=== PATIENT | male | born 1930 | race Caucasian/White ===

== ENCOUNTER 2017-01-26 15:47 | Inpatient (IN) | payer MEDICARE, OTHER ==
[2017-01-26 16:32] LABS: #Basophils 0.1 thou/uL (0.0-0.2); #Eosinphils 0.3 thou/uL (0.0-0.7); #Lymphocytes 1.9 thou/uL (1.20-3.40); #Monocytes 1.1 thou/uL (0.11-0.59); #Neutrophils 9.8 thou/uL (1.40-6.50); %Basophils 0.5 % (0.0-1.0); %Lymphocytes 14.6 % (21.0-51.0); %Monocytes 8.1 % (0.0-10.0); Hematocrit 47.5 % (42.0-52.0); Mean Platelet Volume 7.2 fL (7.4-10.4); Red Blood Cell (RBC) Count 4.77 mill/uL (4.70-6.10); White Blood Cell (WBC) Count 13.1 thou/uL (4.8-10.8)
[2017-01-26 16:41] LABS: Lactic Acid - Sepsis 1.3 mmol/L (0.5-2.2)
[2017-01-26 16:48] LABS: ALT (SGPT) 8 U/L (8-55); AST (SGOT) 20 U/L (5-34); Alkaline Phosphatase 80 U/L (40-150); Anion Gap 11 mmol/L (10-20); BUN (Urea Nitrogen) 14 mg/dL (8.4-25.7); Bilirubin, Total 0.6 mg/dL (0.2-1.2); CK (CPK) 116 U/L (30-200); Calc. Creatinine Clearance 0 mL/min (70-130); Calcium 9.4 mg/dL (7.8-10.44); Carbon Dioxide 26 mmol/L (23-31); Chloride 108 mmol/L (98-107); Estimated GFR-MDRD 72; Protein, Total 6.9 g/dL (5.8-8.1)
[2017-01-26 16:49] LABS: Troponin I Less than 0.010 ng/mL (< 0.028)
[2017-01-26 17:03] LABS: Bilirubin Negative (Negative); Blood, Urine Negative (Negative); Glucose, Urine (Dipstick) 250 mg/dL (Negative); Ketone, Urine Negative (Negative); Nitrite Negative (Negative); Protein, Urine (Dipstick) Negative (Neg-Trace)
--- NOTE | 2017-01-26 17:36 | CT ---
NONCONTRAST CT HEAD: 01/26/2017 HISTORY: Syncopal episode this morning, and patient fell in bathroom. Similar episodes in the past. Injury a t fall. COMPARISON: None available. FINDINGS: There is no evidence of a hemorrhage, acute infarction, mass effect, or midline shift. There is mild cerebral volume loss not unexpected for the patient's age. The ventricular system is normal in size , shape, and position. The visualized paranasal sinuses and right mastoid air cells are clear. Left mastoid air cells are not well-pneumatized but were visualized, and there appear to be mastoid effus ions. No calvarial fracture is seen. IMPRESSION: No acute intracranial abnormality is demonstrated. POS: [facility]
--- NOTE | 2017-01-26 17:49 | RAD ---
CHEST TWO VIEWS HISTORY: Fall. COMPARISON: None. FINDINGS: Lungs are clear and hyperinflated. Chronic pleural and parenchymal changes at lung bases. No pneumot horax. Cardiac silhouette and mediastinal contours are within normal limits. Thoracic spine is unremarkable. IMPRESSION: Mild lung hyperinflation. No acute intrathoracic abnormality. POS: [facility]
--- NOTE | 2017-01-26 17:52 | RAD ---
RIGHT SHOULDER THREE VIEWS: HISTORY: Trauma. COMPARISON: None. FINDINGS: Moderate degenerative changes at acromioclavicular joint. Mild calcific tendinosis of rotator cuff. No acute fracture or malalignment is appreciated. The coracoid process is intact. The right ribs are unremarkable. IMPRESSION: Degenerative changes. No acute fracture or malalignment. POS: [facility]
--- NOTE | 2017-01-26 17:57 | CT ---
CT CERVICAL SPINE WITHOUT CONTRAST: HISTORY: Trauma. COMPARISON: None available. FINDINGS: The occipital condyles are intact. Odontoid process is intact. There is severe left-sided C2-C5 fac et arthropathy. Moderate uncinate process hypertrophy from C3-C7. Likely old superior endplate defo rmity at T2. Paraspinal soft tissues are unremarkable. Mild calcific plaque at the carotid bulbs bi laterally. No adenopathy. The lung apices are clear. IMPRESSION: 1. No acute fracture or malalignment of the cervical spine. 2. Likely chronic superior endplate deformity at T2 with less than 5% height loss. POS: [facility]
--- NOTE | 2017-01-26 18:08 | RAD ---
RIGHT ANKLE THREE VIEWS: HISTORY: Trauma. COMPARISON: None. FINDINGS: No acute fracture or malalignment. Soft tissue unremarkable. There are mild degenerative changes of the medial ankle mortise. IMPRESSION: 1. No acute fracture or malalignment. 2. There is evidence of prior syndesmotic injury. POS: [facility]
--- NOTE | 2017-01-26 20:58 | PDOC.EVN ---
Event Note - Event Note Event Note: [id number] h&p dICTATED 1. AFIB 2. HPL 3. Syncope plan: see orders
[2017-01-26] MEDS ORDERED: Sodium Chloride 0.9% 1,000 ML IV SCH (21:05)
[2017-01-26] MEDS ORDERED: Ondansetron ODT 4 MG TAB SL PRN (21:05)
[2017-01-26] MEDS ORDERED: Ondansetron HCl/PF 4 MG/2 ML Vial IVP PRN (21:05)
[2017-01-26] MEDS ORDERED: HYDROcodone/Acetaminophen 5/325 mg Tablet PO PRN (21:29)
[2017-01-26] MEDS: Sodium Chloride 0.9% 1,000 ML IV SCH (21:51)
[2017-01-26] MEDS: Acetaminophen 325 MG TAB PO PRN (22:04)
[2017-01-26 22:52] VITALS: BMI 19.8
[2017-01-26 23:57] LABS: Troponin I 0.013 ng/mL (< 0.028)
[2017-01-27 05:21] LABS: #Eosinphils 0.6 thou/uL (0.0-0.7); #Lymphocytes 1.8 thou/uL (1.20-3.40); #Neutrophils 5.4 thou/uL (1.40-6.50); %Basophils 0.4 % (0.0-1.0); %Eosinophils 7.3 % (0.0-10.0); %Lymphocytes 20.3 % (21.0-51.0); %Monocytes 10.9 % (0.0-10.0); Hematocrit 42.1 % (42.0-52.0); Mean Platelet Volume 7.2 fL (7.4-10.4); Red Blood Cell (RBC) Count 4.25 mill/uL (4.70-6.10); White Blood Cell (WBC) Count 8.8 thou/uL (4.8-10.8)
--- NOTE | 2017-01-27 05:47 | HP ---
DATE OF ADMISSION: 01/26/2017 CHIEF COMPLAINT: Syncope. HISTORY OF PRESENT ILLNESS: Patient is a 86-year-old male with past medical history of atrial fibril lation, hyperlipidemia and now complaining of syncope. The patient said he was at home and when arou nd 4:00, he woke up this morning and walked to the restroom. While walked to the restroom, he felt l ightheadedness. As soon as he sat on the toilet commode, he passed out due to fall, does not remembe r if he hit his head, but he did lose consciousness for approximately 5 to 6 seconds. He denies any chest pain, denies any palpitations prior to passing out. Once he regained conscious, he knows where he was. The patient was brought to the ER for further evaluation. Denies any chest pain. Denies a ny palpitations. Denies any cough, denies sputum production, denies any nausea, denies vomiting, den ies any dizziness, denies lightheadedness at this time. PAST MEDICAL HISTORY: As per HPI. PAST SURGICAL HISTORY: Cholecystectomy and right breast surgery done, left leg skin graft placed, tr igger finger surgery. SOCIAL HISTORY: Denies smoking, denies alcohol, denies any drugs. FAMILY HISTORY: Positive for heart problems. MEDICATIONS: Reviewed. ALLERGIES: No known drug allergies. REVIEW OF SYSTEMS: Constitutional: Denies any fever, denies any chills. Eyes: Denies any vision problems. Ears: Den ies any hearing loss. Neck: Denies any neck pain. Cardiovascular: Denies any chest pain. Denies palpitations. Respiratory: Denies any cough, denies sputum production. Gastrointestinal: Denies a ny nausea, vomiting. Musculoskeletal: Denies any joint deformities. Cranial nerve system: Positiv e for syncope. Psychiatric: Denies anxiety. Integumentary: Positive for right ankle ecchymosis. All other review of systems are reviewed and are negative. PHYSICAL EXAMINATION: CONSTITUTIONAL/VITAL SIGNS: At the time of H&P performed, blood pressure is 125/83, pulse ox 93%, he art rate 72, respiratory rate 16. GENERAL: The patient appears comfortable. HEENT: Pupils equal, round, and reactive to light. Anterior nares patent. Nose normal. Ears mildred l. Teeth intact. Tongue is moist. NECK: Supple. No JVD. CARDIOVASCULAR SYSTEM: S1, S2 present. Regular rate and rhythm. No murmurs, no rubs, no gallops. RESPIRATORY: No wheezing, no rhonchi. GASTROINTESTINAL: Abdomen is soft, nontender, no guarding, no organomegaly, no masses felt. PSYCHIATRIC: Mood appropriate at this time. INTEGUMENTARY: Positive for right ankle ecchymosis seen and left small skin tear seen on the right u pper back, left hip small ecchymosis seen. LABORATORY DATA: At the time of H&P performed, white count 13.1, hemoglobin 16.2, platelet count is 278. BMP showed sodium 141, potassium 4.3, chloride 108, BUN 14, creatinine 0.9, troponin less than 0.010, BNP 156.8. UA, positive for glucose. CT brain, no acute bleed seen. CT cervical spine, no f racture seen. Ankle x-ray, no obvious fractures seen. Chest x-ray, no obvious infiltrate seen. EKG , no acute ST changes. ASSESSMENT AND PLAN: The patient is an 86-year-old male. 1. Syncope, rule out cardiac etiology. Plan to check cardiac enzymes. Plan to consult cardiology w ith the patient. Plan to check 2D echo and carotid ultrasound also, we will follow the patient. 2. History of atrial fibrillation. Continue sotalol. 3. History of hyperlipidemia. Continue statins. Case was discussed in detail with the patient and patient's granddaughter also.
[2017-01-27 05:52] LABS: Anion Gap 8 mmol/L (10-20); BUN (Urea Nitrogen) 12 mg/dL (8.4-25.7); Calc. Creatinine Clearance 60 mL/min (70-130); Calcium 8.4 mg/dL (7.8-10.44); Carbon Dioxide 25 mmol/L (23-31); Chloride 112 mmol/L (98-107); Estimated GFR-MDRD 89
[2017-01-27] MEDS: Acetaminophen 325 MG TAB PO PRN (06:19)
[2017-01-27] MEDS ORDERED: Sotalol HCl 80 MG TAB PO SCH (09:00)
[2017-01-27] MEDS ORDERED: Aspirin 325 MG TAB PO SCH (09:00)
--- NOTE | 2017-01-27 09:06 | ULT ---
ULTRASOUND WITH DOPPLER DUPLEX CAROTID: History: 86-year-old male with syncope. Technique: Grayscale, color flow, and spectral analysis of major arteries of the neck. FINDINGS: There is intimal thickening throughout the bilateral common carotid arteries and internal carotid art eries. There is mild to moderate calcified plaque in the bilateral proximal internal carotid arteries , including their origins at the carotid bulbs. The highest peak systolic velocities in the internal carotid arteries are 55 cm/s on the right and 60 cm/s on the left. The ICA/CCA ratios are 0.8 on the right and 1.0 on the left. The vertebral artery flow is antegrade bilaterally. IMPRESSION: 1. Mild to moderate atherosclerotic plaque at the bilateral proximal internal carotid arteries. 2. No hemodynamically significant stenosis. POS: [facility]
[2017-01-27] MEDS: Heparin 5,000 UNITS/ML VIAL SC SCH ×2 (09:27→14:06)
[2017-01-27] MEDS: Sodium Chloride 0.9% 1,000 ML IV SCH (09:30)
--- NOTE | 2017-01-27 13:20 | PDOC.PN ---
- Subjective Encounter Start Date: 01/27/17 Encounter Start Time: 13:19 Subjective: feels better. no dizziness here so far.no chest pain/SOB/ palpitations - Objective MAR Reviewed: Yes Vital Signs & Weight: Vital Signs (12 hours) Temp Pulse Resp BP BP BP BP 01/27/17 12:00 97.6 F 72 15 160/80 H 145/70 H 164/77 H 01/27/17 09:28 74 154/63 H 01/27/17 08:00 97.2 F L 74 17 154/63 H 01/27/17 04:00 97.5 F L 65 18 151/70 H Pulse Ox 01/27/17 12:00 98 01/27/17 09:28 01/27/17 08:00 98 01/27/17 04:00 98 Weight Weight 142 lb 6.4 oz I&O: 01/26/17 01/27/17 01/28/17 06:59 06:59 06:59 Intake Total 1215 Output Total 550 Balance 665 Result Diagrams: 01/27/17 04:09 01/27/17 04:09 Additional Labs: Laboratory Tests 01/26/17 01/26/17 01/26/17 15:55 15:55 15:55 WBC 13.1 H Lactic Acid Troponin I Less than 0.010 B-Natriuretic Peptide 156.8 H 01/26/17 01/26/17 01/26/17 15:55 20:32 23:22 WBC Lactic Acid 1.3 Troponin I 0.020 0.013 B-Natriuretic Peptide 01/27/17 04:09 WBC 8.8 Lactic Acid Troponin I B-Natriuretic Peptide Radiology Reviewed by me: Yes (Carotid doppler-no stenosis) Phys Exam - Physical Examination Constitutional: NAD HEENT: PERRLA, moist MMs, sclera anicteric, oral pharynx no lesions Neck: no nodes, no JVD, supple, full ROM Respiratory: no wheezing, no rales, no rhonchi, clear to auscultation bilateral Cardiovascular: RRR, no significant murmur, no rub, gallop Gastrointestinal: soft, non-tender, no distention, positive bowel sounds Musculoskeletal: no edema, pulses present Neurological: non-focal, normal sensation, moves all 4 limbs Psychiatric: normal affect, A&O x 3 Skin: no rash Dx/Plan (1) Syncope and collapse Code(s): R55 - SYNCOPE AND COLLAPSE Status: Acute (2) Chronic atrial fibrillation Code(s): I48.2 - CHRONIC ATRIAL FIBRILLATION Status: Acute (3) HLD (hyperlipidemia) Code(s): E78.5 - HYPERLIPIDEMIA, UNSPECIFIED Status: Acute - Plan plan discussed w/ family, PT/OT, out of bed/ambulate, DVT proph w/SCDs Orthostats negative.cont IVF.reduce rate. -: LINQ monitor in place. awaiting cardio recs if any arrythmia reported. -: ECHO ordered.Restart home meds including Sotalol. -: hemodynamically stable. -: Further management per cardiology recs.troponin negative * . Review of Systems - Review of Systems Constitutional: negative: Fever, Chills, Sweats, Weakness, Malaise, Other Respiratory: negative: Cough, Dry, Shortness of Breath, Hemoptysis, SOB with Excertion, Pleuritic Pain, Sputum, Wheezing Cardiovascular: negative: Chest Pain, Palpitations, Orthopnea, Paroxysmal Noc. Dyspnea, Edema, Light Headedness, Other Gastrointestinal: negative: Nausea, Vomiting, Abdominal Pain, Diarrhea, Constipation, Melena, Hematochezia, Other Genitourinary: negative: Dysuria, Frequency, Incontinence, Hematuria, Retention , Other Musculoskeletal: negative: Neck Pain, Shoulder Pain, Arm Pain, Back Pain, Hand Pain, Leg Pain, Foot Pain, Other Neurological: negative: Weakness, Numbness, Incoordination, Change in Speech, Confusion, Seizures, Other - Medications/Allergies Allergies/Adverse Reactions: Allergies Allergy/AdvReac Type Severity Reaction Status Date / Time No Known Allergies Allergy Verified 01/27/17 02:09 Medications: Current Medications Acetaminophen (Tylenol) 650 mg PO Q4H PRN PRN Reason: Headache/Fever or Pain Last Admin: 01/27/17 06:19 Dose: 650 mg Hydrocodone Bitart/Acetaminophen (Baxter 5/325) 1 tab PO Q4H PRN PRN Reason: Moderate Pain (4-6) Aspirin (Aspirin) 325 mg PO DAILY [facility] Last Admin: 01/27/17 09:28 Dose: 325 mg Heparin Sodium (Porcine) (Heparin) 5,000 units SC TID [facility] Last Admin: 01/27/17 09:27 Dose: 5,000 units Sodium Chloride (Normal Saline 0.9%) 1,000 mls @ 75 mls/hr IV .[id number] [facility] Last Admin: 01/27/17 09:30 Dose: 1,000 mls Ondansetron HCl (Zofran) 4 mg IVP Q6H PRN PRN Reason: Nausea/Vomiting Ondansetron HCl (Zofran Odt) 4 mg SL Q6H PRN PRN Reason: Nausea/Vomiting Rosuvastatin Calcium (Crestor) 20 mg PO HS [facility] Sodium Chloride (Flush - Normal Saline) 10 ml IVF PRN PRN PRN Reason: Saline Flush Sotalol HCl (Betapace) 40 mg PO BID [facility] Last Admin: 01/27/17 09:28 Dose: 40 mg
--- NOTE | 2017-01-27 14:52 | CON ---
DATE OF CONSULTATION: 01/27/2017 REASON FOR CONSULTATION: Syncope. HISTORY OF PRESENT ILLNESS: Mr. Salazar is an 86-year-old gentleman with a history of atrial arrhythm ias with syncopal episode early yesterday morning. The patient states he was sleeping. He was doing fine. He awakened to go to the bathroom. He start ed feeling weak and lightheaded and then suddenly lost consciousness. He may grabbing a rail on the wall near the bathroom, but lost consciousness. He was brought to the hospital. The patient is feel ing fine now. He said similar episodes in the past. He feels weak and lightheaded if he gets outside and gets in t he heat. PAST MEDICAL HISTORY: History of atrial arrhythmias. He has left-sided atrial arrhythmias including atrial tachycardia as well as atrial fibrillation. There has been no documented atrial fibrillation to my knowledge any time recently, but he has had atrial tachycardia. He was previously seen by [facility] ctrophysiology and implantable loop recorder was placed by Dr. Weiss on 10/2014. MEDICATIONS: 1. Sotalol 40 mg twice daily. 2. Simvastatin 10 mg daily. 3. Aspirin 325 mg daily. ALLERGIES: None known. SOCIAL HISTORY: He has a very supportive family. No alcohol or tobacco abuse. REVIEW OF SYSTEMS: Vision: No changes. Hearing: No changes. Pulmonary: No cough or wheezing. G astrointestinal: No nausea, vomiting, diarrhea. Skin: No rashes. Neurologic: No unilateral weakn ess or numbness. Psychiatric: No unusual depression or anxiety. Hematologic: No unusual bruising. Genitourinary: No burning with urination. Musculoskeletal: No unusual joint pains. PHYSICAL EXAMINATION: GENERAL: A pleasant elderly gentleman in no distress. VITAL SIGNS: Blood pressure 147/83. The family tells me that in the emergency room initially he had a very big drop in blood pressure when he went from a supine to sitting position. HEENT: Eyes: Sclerae nonicteric. Mouth, mucous membranes moist. NECK: Supple, no lymphadenopathy. LUNGS: Clear, no wheezing, rales or rhonchi. CARDIAC: Normal S1, normal S2. There is no murmur, rub or gallop. ABDOMEN: Soft, nontender, no hepatosplenomegaly. EXTREMITIES: Warm, dry, no clubbing or cyanosis. There is no edema. IMAGING: EKG, sinus rhythm, first degree AV block, no acute changes. LABORATORY DATA: Troponin 0.022, BNP 227. ASSESSMENT: 1. Syncopal episode, probably orthostatic hypotension. 2. History of atrial arrhythmias. 3. Previous implantable loop recorder. PLAN: 1. Interrogate the device. 2. We did not have any arrhythmias. 3. Probably orthostatic hypotension. We will encourage him to sit on the side of the bed before get ting up and going to the bathroom, sit down quickly if he feels lightheaded. 4. Echo has been also ordered.
[2017-01-27 15:57] VITALS: BP 135/66; TEMP 97.4
--- NOTE | 2017-01-28 05:50 | DIS ---
DATE OF ADMISSION: 01/26/2017 DATE OF DISCHARGE: 01/27/2017 CONDITION AT THE TIME OF DISCHARGE: Stable and improved. DISCHARGE DIAGNOSES: 1. Syncope and falls. 2. Orthostatic hypotension. 3. History of chronic atrial fibrillation. 4. Dyslipidemia. PRIMARY CARE PHYSICIAN: Britton Nair M.D. PRIMARY INSTRUMENTATION SUPERVISOR: Micha Leavitt M.D. CONSULTATIONS IN-HOUSE: Include Cardiology, Dr. Leavitt. PROCEDURES DONE IN THE HOSPITAL: Include: 1. CT scan of the brain, which is negative for any acute intracranial abnormality. 2. CT scan of the cervical spine, which is negative for any acute fracture, chronic superior endplat e deformity T2 seen. 3. X-ray of the shoulder on the right side, it shows degenerative changes without any acute fracture s. 4. Ankle x-ray on the right ankle, which is negative for any fracture. 5. Chest x-ray which did not show any evidence of infiltrate or pulmonary edema. 6. Transthoracic echocardiogram, which shows normal left ventricular size and function with EF at 55 %-60%. Left atrium normal size, normal mitral and aortic valve. Mild tricuspid regurgitation and mi ld elevated pulmonary arterial pressure. 7. Carotid Doppler ultrasound, which is negative for and hemodynamically significant stenosis. Mode rate atherosclerotic plaque is seen in the bilateral proximal internal carotid artery without signifi cant stenosis. DISCHARGE MEDICATIONS: Remained the same as the home medication are as follows: Sotalol 40 mg p.o. b.i.d., aspirin 325 mg daily, and rosuvastatin 20 mg daily. PRESENTING HISTORY: Mr. Salazar is a pleasant 86-year-old male with past medical history of atrial arrhythmias as well as dyslipidemia, who presented to the hospital after having a syncopal ep isode and passing out and falling in his bathroom. Upon presentation, he was hemodynamically stable, awake, alert, and oriented x3. He underwent multitude of imaging studies as mentioned above and all of them were essentially unremarkable. He did not have any fracture, no cerebral hemorrhage. He wa s admitted to cardiac floor with telemetry monitoring for further evaluation given his history of atr ial arrhythmias. His EKG showed normal sinus rhythm upon presentation and he was hemodynamically sta ble. Please see admission history and physical for further details. HOSPITAL COURSE: The patient did not have any arrhythmias while he stayed in the hospital. His orth ostatics were checked and he had significant drop initially, which corrected after he was resuscitate d with IV fluids. His device was interrogated by Cardiology. Dr. Leavitt also saw the patient and he underwent an echocardiogram. His echocardiogram and his loop recorder recordings were essentially n ormal. His carotid Doppler study was also unremarkable. He was cleared by Cardiology for discharge with outpatient followup. Most likely cause of his syncop e is orthostatic hypotension. The patient was given instructions to sit up slowly from a lying position and stand up very slowly be fore start to move around. His medications were unchanged. He will follow up with Dr. Leavitt and hi s primary care physician as an outpatient. Discharge plan was discussed with the patient and his fam elizabeth, who verbalized understanding.
== END 2017-01-27 18:25 | disposition home or self-care (01) | DRG 312 ==
LOC: ERS 15:47 → 2NO 20:12
PROVIDERS: ADMIT Internal Medicine; ATTEND Internal Medicine
PROC: 4B02XSZ Measurement of Cardiac Pacemaker, External Approach (ICD-10-PCS; principal; 2017-01-27)
DX: I95.1 Orthostatic hypotension (principal); I48.2 Chronic atrial fibrillation; E78.5 Hyperlipidemia, unspecified
CPT/HCPCS: 36415; 70450; 71020; 72125; 80048; 80053; 81003; 82553; 83605; 83880; 84484; 85025; 87086; 93005; 93306; 93880; 96360; J1644